=== PATIENT | male | born 1995 | race African-American/Black ===

== ENCOUNTER 2018-07-04 00:57 | Emergency (ER) | payer OTHER ==
[2018-07-04] MEDS ORDERED: IBUPROFEN 800 MG TABLET PO ONE (01:40)
--- NOTE | 2018-07-04 01:43 | ER Document Report ---
ED Medical Screen (RME) - General Chief Complaint: Wrist Injury Stated Complaint: WRIST INJURY Time Seen by Provider: 07/04/18 01:40 Notes: 22-year-old -Brazilian male coming in today with left wrist injury. Yesterday he he tripped and landed with all of his weight onto his left wrist. Gradually started developing more soft tissue swelling and bruising in the wrist. Decreased range of motion. I have treated and performed a rapid initial assessment of this patient. A comprehensive ED assessment and evaluation of the patient, analysis of test results and completion of medical decision making process will be conducted by additional ED providers. PHYSICAL EXAMINATION: GENERAL: Well-appearing LUNGS: Unlabored HEART: Extremities well perfused Extremities: Moderate soft tissue swelling left wrist and ecchymosis. Decreased range of motion at the wrist. Elbow and shoulder are unaffected NEUROLOGICAL: Normal speech, normal gait. PSYCH: Normal mood, normal affect. TRAVEL OUTSIDE OF THE [place] IN LAST 30 DAYS: No - Related Data Allergies/Adverse Reactions: No Known Allergies Allergy (Verified 09/06/15 11:50) Past Medical History - Social History Frequency of alcohol use: Social Drug Abuse: Marijuana Neurological Medical History: Reports: Hx Seizures Renal/ Medical History: Denies: Hx Peritoneal Dialysis Past Surgical History: Reports: Hx Orthopedic Surgery - jaw fx - Immunizations Immunizations up to date: Yes Hx Diphtheria, Pertussis, Tetanus Vaccination: Yes - unknown last Physical Exam - Vital signs Vitals: Temp Pulse Resp BP Pulse Ox 97.7 F 95 18 123/73 98 07/04/18 00:58 07/04/18 00:58 07/04/18 00:58 07/04/18 00:58 07/04/18 00:58 Course - Vital Signs Vital signs: Temp Pulse Resp BP Pulse Ox 97.7 F 95 18 123/73 98 07/04/18 00:58 07/04/18 00:58 07/04/18 00:58 07/04/18 00:58 07/04/18 00:58
--- NOTE | 2018-07-04 03:37 | ER Document Report ---
HPI - HPI Patient complains to provider of: L wrist injury Time Seen by Provider: 07/04/18 01:40 Pain Level: 5 Context: 22-year-old -[place] male coming in today with left wrist injury. Yesterday he he tripped and landed with all of his weight onto his left wrist. Gradually started developing more soft tissue swelling and bruising in the wrist. Decreased range of motion. Patient is concerned that he is losing circulation although he does have brisk cap refill and a strong 2+ radial pulse. He complains of pain over the medial aspect of the hyperthenar eminence and over the distal ulna. He does have limited range of motion and pain with movement. - MUSCULOSKELETAL Musculoskeletal: REPORTS: Extremity pain - Left wrist Past Medical History - Social History Smoking Status: Current Every Day Smoker Frequency of alcohol use: Social Drug Abuse: Marijuana Family History: Reviewed & Not Pertinent Patient has suicidal ideation: No Patient has homicidal ideation: No Neurological Medical History: Reports: Hx Seizures Renal/ Medical History: Denies: Hx Peritoneal Dialysis Past Surgical History: Reports: Hx Orthopedic Surgery - jaw fx - Immunizations Immunizations up to date: Yes Hx Diphtheria, Pertussis, Tetanus Vaccination: Yes - unknown last Vertical Provider Document - CONSTITUTIONAL Notes: PHYSICAL EXAMINATION: Reviewed vital signs and charting by RN GENERAL: Well-appearing, well-nourished and in no acute distress. HEAD: Atraumatic, normocephalic. No scalp deformity EXTREMITIES: Limited range of motion with flexion and extension of the left wrist. Mild edema and ecchymosis over the distal ulna. Patient able to give thumbs up okay sign and move all of his fingers. Normal distal neurovascular exam. NEUROLOGICAL: No focal neurological deficits. Moves all extremities spon taneously and on command. PSYCH: Normal mood, normal affect. No suicidal thoughts/ideations. No homocidal thoughts/ideations. No hallucinations. SKIN: Warm, dry, normal turgor, no rashes or lesions noted. - INFECTION CONTROL TRAVEL OUTSIDE OF THE [place] IN LAST 30 DAYS: No Course - Re-evaluation Re-evalutation: 07/04/18 03:37 Overall well-appearing presents over 24 hours after the injury. X-ray is pending plan to immobilized with a volar splint. 07/04/18 04:25 X-ray was read as negative for any fracture or dislocation. Will place patient in a cock-up splint. Normal distal neurovascular exam. - Vital Signs Vital signs: Temp Pulse Resp BP Pulse Ox 97.7 F 95 18 123/73 98 07/04/18 00:58 07/04/18 00:58 07/04/18 00:58 07/04/18 00:58 07/04/18 00:58 Discharge - Discharge Clinical Impression: Left wrist injury Qualifiers: Encounter type: initial encounter Qualified Code(s): S69.92XA - Unspecified in jury of left wrist, hand and finger(s), initial encounter Condition: Good Disposition: HOME, SELF-CARE Additional Instructions: You were seen in the emergency department this evening for a wrist injury. X- ray did not show any evidence of fracture or dislocation of any of your bones. He has good circulation to your hand. This is all very reassuring and I have placed you in something called a cock-up splint that you can wear for the next week to 10 days. He can remove it as needed for showering. Your injury is most likely due to soft tissue and you could have possibly sprained a ligament or strained some muscles. You can take Motrin 600 mg every 6 hours and/or Tylenol 1000 mg every 6 hours for pain and inflammation. Please follow-up with your primary doctor as needed in the next couple of weeks. If you develop numbness or tingling in your fingertips or hand it may be that the splint is too tight you can loosen it. If you still have the symptoms after loosening it please come in for reevaluation. If your fingers start to turn blue or purple, it goes numb, or you are unable to use it please return for reevaluation.
[2018-07-04 03:55] VITALS: BP 124/75
--- NOTE | 2018-07-04 04:14 | RADIOLOGY REPORT (SQ) ---
EXAM DESCRIPTION: XR WRIST 3 OR MORE VIEWS COMPLETED DATE/TME: 07/04/2018 01:40 CLINICAL HISTORY: 22 years, Male, injury, swelling COMPARISON: None. NUMBER OF VIEWS: 4 TECHNIQUE: 4 view left wrist LIMITATIONS: None. FINDINGS: Negative for acute fracture or dislocation. Soft tissues are unremarkable IMPRESSION: Negative exam copyright 2011 [employer]- All Rights Reserved
== END 2018-07-04 05:00 | disposition home or self-care (01) ==
LOC: ER 00:57
DX: S60.212A Contusion of left wrist, initial encounter (principal); W19.XXXA Unspecified fall, initial encounter; Y93.67 Activity, basketball; F17.200 Nicotine dependence, unspecified, uncomplicated; F12.10 Cannabis abuse, uncomplicated
CPT/HCPCS: 99283; 73110; L3908

== ENCOUNTER 2018-12-07 15:29 | Emergency (ER) | payer OTHER ==
--- NOTE | 2018-12-07 15:36 | ER Document Report ---
ED Medical Screen (RME) - General Chief Complaint: Probable Seizure Stated Complaint: SEIZURE Time Seen by Provider: 12/07/18 15:34 Mode of Arrival: Wheelchair Information source: Patient, Parent Notes: 23-year-old male presented to ED post seizure. Mother states that he has a history of seizures he was seeing Dr. Yap and Dr. Canela left they have not been able to get into another doctor to get back on his seizure medicines he has not had a seizure medicine for about a year. He states she is always known when he does not have a seizure. She states he came up to her tensed up became very anxious she got his bed where he laid down then he started shaking she was not able to talk to him for about 5 minutes. She states he was not incontinent of urine or stool. 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 He is alert and oriented at this time he is able to answer questions appropriately. I have greeted and performed a rapid initial assessment of this patient. A comprehensive ED assessment and evaluation of the patient, analysis of test results and completion of medical decision making process will be conducted by an additional ED providers. TRAVEL OUTSIDE OF THE [place] IN LAST 30 DAYS: No - Related Data Allergies/Adverse Reactions: No Known Allergies Allergy (Verified 09/06/15 11:50) Past Medical History Neurological Medical History: Reports: Hx Seizures Renal/ Medical History: Denies: Hx Peritoneal Dialysis Past Surgical History: Reports: Hx Orthopedic Surgery - jaw fx - Immunizations Immunizations up to date: Yes Hx Diphtheria, Pertussis, Tetanus Vaccination: Yes - unknown last
[2018-12-07] MEDS ORDERED: LEVETIRACETAM 500 MG/NACL-ISO 500 MG/100 ML RTUPB IV ONE (15:47)
--- NOTE | 2018-12-07 15:56 | ER Document Report ---
ED General - General Chief Complaint: Probable Seizure Stated Complaint: SEIZURE Time Seen by Provider: 12/07/18 15:34 Mode of Arrival: Wheelchair TRAVEL OUTSIDE OF THE [place] IN LAST 30 DAYS: No - HPI Notes: Patient is a 23-year-old male with history of seizure disorder who presents with mother after having a seizure prior to arrival about an hour ago. Patient states that he had not been sleeping for the past 24 hours, drink 42 ounces of alcohol this morning, and has been stressed out. Patient states that he was walking towards living room when he had a seizure. Patient states that he did not injure any part of his body. This was witnessed by the mother. Mother states that he throws up and had little shaking and did not want to respond for about 2 minutes. Patient states that this was not as severe as his normal seizures. Last seizure was 3 months ago. He is not currently on any medicines. He has not been following with a neurologist for over a year. He did not bite his tongue, cheek, or have any incontinence. Patient states that he does have some light sensitivity and intermittent nausea, but is otherwise feeling well. No nausea currently. Denies any headache, fever, head injury, neck pain, changes in vision/speech/mentation/hearing, URI, sore throat, chest pain, palpitations, syncope, cough, shortness of breath, wheeze, dyspnea, abdominal pain, nausea/vomiting/diarrhea, urinary retention, dysuria, hematuria, loss of control of bowel or bladder, numbness/tingling, saddle anesthesia, muscle paralysis/weakness, or rash. - Related Data Allergies/Adverse Reactions: No Known Allergies Allergy (Verified 12/07/18 15:45) Home Medications: mens multivitamin Past Medical History - General Information source: Patient, Parent - Social History Smoking Status: Never Smoker Chew tobacco use (# tins/day): No Frequency of alcohol use: None Drug Abuse: None Family History: Reviewed & Not Pertinent Patient has suicidal ideation: No Patient has homicidal ideation: No Neurological Medical History: Reports: Hx Seizures Renal/ Medical History: Denies: Hx Peritoneal Dialysis Past Surgical History: Reports: Hx Orthopedic Surgery - jaw fx - Immunizations Immunizations up to date: Yes Hx Diphtheria, Pertussis, Tetanus Vaccination: Yes - unknown last Review of Systems - Review of Systems -: Yes All other systems reviewed and negative Physical Exam - Vital signs Vitals: Temp Pulse Resp BP Pulse Ox 97.7 F 97 20 141/84 H 94 12/07/18 15:33 12/07/18 15:33 12/07/18 15:33 12/07/18 15:33 12/07/18 15:33 - Notes Notes: PHYSICAL EXAMINATION: GENERAL: Well-appearing, well-nourished and in no acute distress. A&Ox4. Answers questions appropriately. HEAD: Atraumatic, normocephalic. Non-tender. EYES: Pupils equal round and reactive to light, extraocular movements intact, sclera anicteric, conjunctiva are normal. No nystagmus. ENT: EAC clear b/l. TM's intact b/l without erythema, fluid, or perforation. Nares patent and without discharge. oropharynx clear without exudates. No tonsilar hypertrophy or erythema. Moist mucous membranes. No sinus tenderness. NECK: Normal range of motion, supple without lymphadenopathy. No rigidity/meningismus. No midline tenderness. LUNGS: Breath sounds clear to auscultation bilaterally and equal. No wheezes rales or rhonchi. HEART: Regular rate and rhythm without murmurs, rubs, gallops. ABDOMEN: Soft, nontender, nondistended abdomen. No guarding, no rebound. Normal bowel sounds present. No CVA tenderness bilaterally. Musculoskeletal: Ext b/l: FROM to passive/active. Strength 5+/5. No deficits noted. No bony tenderness of extremities. Extremities: No cyanosis, clubbing, or edema b/l. Peripheral pulses 2+. Ca pillary refill less than 2 seconds. NEUROLOGICAL: NIH 0. GCS 15. Cranial nerves grossly intact. Normal speech, normal gait. Normal sensory, motor exams. Reflexes 2+ b/l. LEDY's negative. Pronator drift negative. Heel/mitchell, finger/nose wnl. PSYCH: Normal mood, normal affect. SKIN: Warm, Dry, normal turgor, no rashes or lesions noted. Course - Re-evaluation Re-evalutation: 12/07/18 18:36 Patient is an afebrile, well-hydrated, 23-year-old male who presents with seizure and known seizure disorder, otherwise back to baseline. Vitals are acceptable without significant tachycardia, tachypnea, or hypoxia. PE is otherwise unremarkable for any focal neurological deficit. Patient is nontoxic- appearing and has been tolerating p.o. without difficulty. Patient was given fluids as well as Keppra. Labs unremarkable. No further work-up warranted at this time. Mother feels competent to take him home and to monitor at home. Low suspicion for any acute glaucoma, temporal arteritis, meningitis, intracranial hemorrhage, ischemic stroke, sepsis, or fracture at this time. Patient is aware that his condition can change from initial presentation and that he needs to monitor symptoms closely for any acute changes. Patient to schedule an appointment with neurology. Recheck with your PCM this week. Return to the ED with any other worsening/concerning symptoms. Patient is in agreement. - Vital Signs Vital signs: Temp Pulse Resp BP Pulse Ox 97.7 F 97 12 133/74 H 99 12/07/18 15:33 12/07/18 15:33 12/07/18 17:45 12/07/18 17:45 12/07/18 17:45 - Laboratory Result Diagrams: 12/07/18 15:55 12/07/18 15:55 Laboratory results interpreted by me: 12/07/18 12/07/18 12/07/18 15:55 15:55 17:42 RBC 4.23 L Plt Count 113 L Seg Neuts % (Manual) 35 L Lymphocytes % (Manual) 51 H AST 153 H Total Protein 8.9 H Albumin 5.1 H Urine Protein 30 H Discharge - Discharge Clinical Impression: Seizure Condition: Stable Disposition: HOME, SELF-CARE Instructions: Seizure, Known Epileptic ([facility]) Additional Instructions: Rest, Ice/cool compress Tylenol/ibuprofen as needed Light stretches daily Strength exercises as able Moist heat and massage may help F/u with your PCP in 3-5 days for a recheck Schedule consult(s) with Neurology Return to the ED with any worsening symptoms and/or development of fever, headache, changes in behavior/mentation/vision/speech, chest pain, palpitations, syncope, shortness of breath, trouble breathing, abdominal pain, n/v/d, blood in stool/urine, loss of control of bowel/bladder, urinary retention, muscle weakness/paralysis, saddle anesthesia, numbness/tingling, or other worsening symptoms that are concerning to you. Forms: Elevated Blood Pressure Referrals: MANISH JOLLY MD [NO LOCAL MD] - Follow up as needed ANGELITA PAPPAS MD [COMMUNITY BASED STAFF] - Follow up as needed
[2018-12-07] MEDS: NORMAL SALINE 1000 ML 1,000 ML IV PRN ×2 (16:11→17:13)
[2018-12-07 16:18] LABS: HEMATOCRIT 40.1 % (37.9-51.0); HEMOGLOBIN 13.5 g/dL (13.5-17.0); MEAN CORPUSCULAR HEMOGLOBIN 31.9 pg (27.0-33.4); MEAN CORPUSCULAR HGB CONC 33.7 g/dL (32.0-36.0); MEAN CORPUSCULAR VOLUME 95 fl (80-97); PLATELET COUNT 113 10^3/uL (150-450); RED BLOOD COUNT 4.23 10^6/uL (4.35-5.55); RED CELL DISTRIBUTION WIDTH 13.3 % (11.5-14.0); WHITE BLOOD COUNT 6.9 10^3/uL (4.0-10.5)
[2018-12-07 16:26] LABS: ALBUMIN 5.1 g/dL (3.5-5.0); ALKALINE PHOSPHATASE 80 U/L (38-126); ANION GAP 13 (5-19); ASPARTATE AMINO TRANSFERASE 153 U/L (17-59); BILIRUBIN,DIRECT 0.1 mg/dL (0.0-0.4); BILIRUBIN,TOTAL 0.6 mg/dL (0.2-1.3); BLOOD UREA NITROGEN 10 mg/dL (7-20); CALCIUM 9.3 mg/dL (8.4-10.2); CARBON DIOXIDE 27 mmol/L (22-30); CHLORIDE 103 mmol/L (98-107); GLUCOSE 101 mg/dL (75-110); TOTAL PROTEIN 8.9 g/dL (6.3-8.2)
[2018-12-07 16:36] LABS: ABSOLUTE LYMPHOCYTES# (MANUAL) 3.7 10^3/uL (0.5-4.7); ABSOLUTE MONOCYTES # (MANUAL) 0.6 10^3/uL (0.1-1.4); BASOPHILS % (MANUAL) 1 % (0-2); EOSINOPHILS % (MANUAL) 2 % (0-6); LYMPHOCYTES % (MANUAL) 51 % (13-45); MONOCYTES % (MANUAL) 8 % (3-13); SEGMENTED NEUTROPHILS % (MAN) 35 % (42-78); TOTAL CELLS COUNTED 100
[2018-12-07 16:37] LABS: PLATELET COMMENT DECREASED
[2018-12-07 18:04] LABS: APPEARANCE,URINE CLEAR; BILIRUBIN,URINE NEGATIVE (NEGATIVE); COLOR,URINE YELLOW; GLUCOSE, URINE NEGATIVE (NEGATIVE); KETONES,URINE NEGATIVE (NEGATIVE); PROTEIN,URINE 30 mg/dL (NEGATIVE); URINE SPECIFIC GRAVITY 1.014; UROBILINOGEN,URINE NEGATIVE mg/dL (<2.0)
[2018-12-07 18:19] LABS: URINE AMPHETAMINES SCREEN NEGATIVE; URINE BARBITURATES SCREEN NEGATIVE; URINE BENZODIAZEPINES SCREEN NEGATIVE; URINE COCAINE SCREEN NEGATIVE; URINE MARIJUANA (THC) SCREEN NEGATIVE; URINE METHADONE SCREEN NEGATIVE; URINE PHENCYCLIDINE SCREEN NEGATIVE
[2018-12-07 18:37] VITALS: BP 128/85
== END 2018-12-07 18:55 | disposition home or self-care (01) ==
LOC: ER 15:29
DX: R56.9 Unspecified convulsions (principal); R11.0 Nausea; Z79.899 Other long term (current) drug therapy
CPT/HCPCS: 99284; 96361; 96374; 36415; 85025; 80053; 81001; 80307; J7030; J1953

== ENCOUNTER 2018-12-15 17:53 | Emergency (ER) | payer OTHER ==
[2018-12-15 18:34] LABS: ABSOLUTE BASOPHILS # (AUTO) 0.1 10^3/uL (0.0-0.2); ABSOLUTE EOSINOPHILS # (AUTO) 0.1 10^3/uL (0.0-0.6); ABSOLUTE LYMPHOCYTES (AUTO) 3.4 10^3/uL (0.5-4.7); ABSOLUTE MONOCYTES (AUTO) 0.9 10^3/uL (0.1-1.4); ABSOLUTE NEUT (AUTO) 2.3 10^3/uL (1.7-8.2); BASOPHILS % (AUTO) 1.5 % (0-2); EOSINOPHILS % (AUTO) 1.4 % (0-6); HEMATOCRIT 37.7 % (37.9-51.0); HEMOGLOBIN 12.9 g/dL (13.5-17.0); LYMPHOCYTES % (AUTO) 49.9 % (13-45); MEAN CORPUSCULAR HEMOGLOBIN 32.1 pg (27.0-33.4); MEAN CORPUSCULAR HGB CONC 34.3 g/dL (32.0-36.0); MEAN CORPUSCULAR VOLUME 94 fl (80-97); MONOCYTES % (AUTO) 13.1 % (3-13); PLATELET COUNT 114 10^3/uL (150-450); RED BLOOD COUNT 4.03 10^6/uL (4.35-5.55); RED CELL DISTRIBUTION WIDTH 13.1 % (11.5-14.0); SEGMENTED NEUTROPHILS % (AUTO) 34.1 % (42-78); TOTAL CELLS COUNTED % (AUTO) 100 %; WHITE BLOOD COUNT 6.8 10^3/uL (4.0-10.5)
[2018-12-15 18:43] LABS: ALKALINE PHOSPHATASE 67 U/L (38-126); ANION GAP 13 (5-19); ASPARTATE AMINO TRANSFERASE 128 U/L (17-59); BILIRUBIN,DIRECT 0.2 mg/dL (0.0-0.4); BILIRUBIN,TOTAL 0.5 mg/dL (0.2-1.3); BLOOD UREA NITROGEN 9 mg/dL (7-20); CALCIUM 9.3 mg/dL (8.4-10.2); CARBON DIOXIDE 29 mmol/L (22-30); CHLORIDE 104 mmol/L (98-107); GLUCOSE 116 mg/dL (75-110); TOTAL PROTEIN 8.8 g/dL (6.3-8.2)
[2018-12-15] MEDS ORDERED: LEVETIRACETAM 1000 MG/NACL-ISO 1,000 MG/100 ML RTUPB IV ONE (18:44)
[2018-12-15] MEDS ORDERED: LEVETIRACETAM 500 MG/NACL-ISO 500 MG/100 ML RTUPB IV ONE (18:45)
[2018-12-15 18:57] LABS: ALCOHOL 449 mg/dL (NONE DETECTED)
--- NOTE | 2018-12-15 18:57 | ER Document Report ---
ED Seizure - General Chief Complaint: Probable Seizure Stated Complaint: POSSIBLE SEIZURE Time Seen by Provider: 12/15/18 18:23 Primary Care Provider: ROE SLADANA DO [Primary Care Provider] - Follow up as needed Notes: Patient is a 23-year-old male history of "nocturnal seizures" presents to the emergency department for a potential seizure. Patient voices he also does drink alcohol heavily. Patient's denying any seizures from withdrawal. Patient voices he has been drinking "the same amount" of alcohol he always drinks for "years now." Patient voices he has intermittent twitching episodes in his arms and his legs and he "stares off" for long periods of time. Pt voices he did take Keppra in the past but stopped it himself as he "did not think he needed it anymore." Pt was also seen her recently for sz, told to f/u with Neuro and did not. Mother in the room currently stating she will make sure the pt. has proper f/u. Pt voices he overall does feel tired and was nauseated which is typical after h is sz. Patient's denying any trauma or falls. I have spoken with him at length about [facility]. He is wishing to decline. - Related Data Allergies/Adverse Reactions: No Known Allergies Allergy (Verified 12/07/18 15:45) Past Medical History - General Information source: Patient - Social History Smoking Status: Unknown if Ever Smoked Frequency of alcohol use: Heavy Drug Abuse: None Family History: Reviewed & Not Pertinent Patient has suicidal ideation: No Patient has homicidal ideation: No Neurological Medical History: Reports: Hx Seizures Renal/ Medical History: Denies: Hx Peritoneal Dialysis Past Surgical History: Reports: Hx Orthopedic Surgery - jaw fx - Immunizations Immunizations up to date: Yes Hx Diphtheria, Pertussis, Tetanus Vaccination: Yes - unknown last Review of Systems - Review of Systems Constitutional: denies: Fever EENT: No symptoms reported Cardiovascular: No symptoms reported Respiratory: No symptoms reported Gastrointestinal: See HPI Genitourinary: No symptoms reported Male Genitourinary: No symptoms reported Musculoskeletal: No symptoms reported Skin: No symptoms reported Hematologic/Lymphatic: No symptoms reported Neurological/Psychological: See HPI Physical Exam - Vital signs Vitals: Resp 11 L 12/15/18 18:01 - Notes Notes: GENERAL: Alert, interacts well. No acute distress. HEAD: Normocephalic, atraumatic. EYES: Pupils equal, round, and reactive to light. Extraocular movements intact. ENT: Oral mucosa moist, tongue midline. Nares patent, no nasal septal hematoma, TM's intact. NECK: Full range of motion. Supple. Trachea midline. LUNGS: Clear to auscultation bilaterally, no wheezes, rales, or rhonchi. No respiratory distress. HEART: Regular rate and rhythm. No murmur ABDOMEN: Soft, non-tender. Non-distended. Bowel sounds present in all 4 quadrants. EXTREMITIES: Moves all 4 extremities spontaneously. No edema, normal radial and dorsalis pedis pulses bilaterally. No cyanosis. BACK: no cervical, thoracic, lumbar midline tenderness. No saddle anesthesia, normal distal neurovascular exam. NEUROLOGICAL: Alert and oriented x3. Normal speech. cranial nerves II through XII grossly intact. PSYCH: Normal affect, normal mood. SKIN: Warm, dry, normal turgor. No rashes or lesions noted. Course - Re-evaluation Re-evalutation: Laboratory 12/15/18 12/15/18 12/15/18 18:03 18:03 18:03 WBC 6.8 RBC 4.03 L Hgb 12.9 L Hct 37.7 L MCV 94 MCH 32.1 MCHC 34.3 RDW 13.1 Plt Count 114 L Lymph % (Auto) 49.9 H [place] % (Auto) 13.1 H Eos % (Auto) 1.4 Baso % (Auto) 1.5 Absolute Neuts (auto) 2.3 Absolute Lymphs (auto) 3.4 Absolute Monos (auto) 0.9 Absolute Eos (auto) 0.1 Absolute Basos (auto) 0.1 Seg Neutrophils % 34.1 L Sodium 145.8 H Potassium 4.0 Chloride 104 Carbon Dioxide 29 Anion Gap 13 BUN 9 Creatinine 0.85 Est GFR ( Amer) > 60 Est GFR (MDRD) Non-Af > 60 Glucose 116 H Calcium 9.3 Magnesium 2.0 Total Bilirubin 0.5 Direct Bilirubin 0.2 Neonat Total Bilirubin Not Reportable Neonat Direct Bilirubin Not Reportable Neonat Indirect Bili Not Reportable AST 128 H ALT 72 Alkaline Phosphatase 67 Creatine Kinase 427 H Total Protein 8.8 H Albumin 5.0 Urine Color Urine Appearance Urine pH Ur Specific [place] Urine Protein Urine Glucose (UA) Urine Ketones Urine Blood Urine Nitrite Urine Bilirubin Urine Urobilinogen Ur Leukocyte Esterase Urine WBC (Auto) Urine RBC (Auto) Urine Ascorbic Acid Urine Opiates Screen Urine Methadone Screen Ur Barbiturates Screen Ur Phencyclidine Scrn Ur Amphetamines Screen U Benzodiazepines Scrn Urine Cocaine Screen U Marijuana (THC) Screen Serum Alcohol 449 H* 12/15/18 12/15/18 19:32 19:32 WBC RBC Hgb Hct MCV MCH MCHC RDW Plt Count Lymph % (Auto) [place] % (Auto) Eos % (Auto) Baso % (Auto) Absolute Neuts (auto) Absolute Lymphs (auto) Absolute Monos (auto) Absolute Eos (auto) Absolute Basos (auto) Seg Neutrophils % Sodium Potassium Chloride Carbon Dioxide Anion Gap BUN Creatinine Est GFR ( Amer) Est GFR (MDRD) Non-Af Glucose Calcium Magnesium Total Bilirubin Direct Bilirubin Neonat Total Bilirubin Neonat Direct Bilirubin Neonat Indirect Bili AST ALT Alkaline Phosphatase Creatine Kinase Total Protein Albumin Urine Color STRAW Urine Appearance CLEAR Urine pH 6.0 Ur Specific [place] 1.006 Urine Protein 30 H Urine Glucose (UA) NEGATIVE Urine Ketones NEGATIVE Urine Blood SMALL H Urine Nitrite NEGATIVE Urine Bilirubin NEGATIVE Urine Urobilinogen NEGATIVE Ur Leukocyte Esterase NEGATIVE Urine WBC (Auto) 0 Urine RBC (Auto) 0 Urine Ascorbic Acid NEGATIVE Urine Opiates Screen NEGATIVE Urine Methadone Screen NEGATIVE Ur Barbiturates Screen NEGATIVE Ur Phencyclidine Scrn NEGATIVE Ur Amphetamines Screen NEGATIVE U Benzodiazepines Scrn NEGATIVE Urine Cocaine Screen NEGATIVE U Marijuana (THC) Screen NEGATIVE Serum Alcohol Pts alcohol was noted to be significantly elevated at todays visit. I have again talked to him about [facility]. He remains clinically sober CAOx4 GCS 15 with family in the room. Discussed he should not be driving with sz or alcohol intoxication. Discussed also he should not be swimming or bathing alone for drowning risk. Pts mother is back at bedside and will be taking over care of the Pt. I have spo roma with her about the significantly elevated etoh and risks of aspiration PNA or hypoxia or respiratory depression. Mother voices understanding and pt. will be d/c to her care. Again pt is refusing [facility], will provide paperwork/information for later treatment as wanted. - Vital Signs Vital signs: Temp Pulse Resp BP Pulse Ox 98 F 27 H 127/83 H 98 12/15/18 18:58 12/15/18 20:01 12/15/18 20:01 12/15/18 20:01 - Laboratory Result Diagrams: 12/15/18 18:03 12/15/18 18:03 Laboratory results interpreted by me: 12/15/18 12/15/18 12/15/18 18:03 18:03 18:03 RBC 4.03 L Hgb 12.9 L Hct 37.7 L Plt Count 114 L Lymph % (Auto) 49.9 H [place] % (Auto) 13.1 H Seg Neutrophils % 34.1 L Sodium 145.8 H Glucose 116 H AST 128 H Creatine Kinase 427 H Total Protein 8.8 H Urine Protein Urine Blood Serum Alcohol 449 H* 12/15/18 19:32 RBC Hgb Hct Plt Count Lymph % (Auto) [place] % (Auto) Seg Neutrophils % Sodium Glucose AST Creatine Kinase Total Protein Urine Protein 30 H Urine Blood SMALL H Serum Alcohol Discharge - Discharge Clinical Impression: Seizure, Alcohol abuse Condition: Stable Disposition: HOME, SELF-CARE Instructions: Seizure, Known Epileptic ([facility]), Chronic Alcoholism ([facility]), Acute Alcohol Intoxication ([facility]) Additional Instructions: As we discussed you have been seen and treated in the emergency department for a seizure and alcohol intoxication. Is very important that you follow-up with neurology. I have also provided phone numbers for follow-up with outpatient alcohol detox facilities. Please also take medications as prescribed. Please return to the emergency department for any concerns. Prescriptions: Levetiracetam [Keppra 500 mg Tablet] 500 mg PO Q12 #14 tablet Referrals: ROE SALDANA DO [Primary Care Provider] - Follow up as needed MANISH JOLLY MD [NO LOCAL MD] - Follow up as needed
[2018-12-15] MEDS ORDERED: RINGERS SOLUTION,LACTATED 1,000 ML IV ONE (19:01)
[2018-12-15 19:53] LABS: APPEARANCE,URINE CLEAR; BILIRUBIN,URINE NEGATIVE (NEGATIVE); COLOR,URINE STRAW; GLUCOSE, URINE NEGATIVE (NEGATIVE); KETONES,URINE NEGATIVE (NEGATIVE); LEUKOCYTE ESTERASE,URINE NEGATIVE (NEGATIVE); NITRITE,URINE NEGATIVE (NEGATIVE); PROTEIN,URINE 30 mg/dL (NEGATIVE); URINE SPECIFIC GRAVITY 1.006; UROBILINOGEN,URINE NEGATIVE mg/dL (<2.0)
[2018-12-15 20:19] LABS: URINE AMPHETAMINES SCREEN NEGATIVE; URINE BARBITURATES SCREEN NEGATIVE; URINE BENZODIAZEPINES SCREEN NEGATIVE; URINE COCAINE SCREEN NEGATIVE; URINE MARIJUANA (THC) SCREEN NEGATIVE; URINE METHADONE SCREEN NEGATIVE; URINE PHENCYCLIDINE SCREEN NEGATIVE
[2018-12-15 21:48] VITALS: BP 108/54
--- NOTE | 2018-12-15 22:55 | EKG REPORT ---
SEVERITY:- NORMAL ECG - SINUS RHYTHM : Confirmed by: Elizabeth Sim MD 15-Dec-2018 22:54:08
== END 2018-12-15 21:41 | disposition home or self-care (01) ==
LOC: ER 17:53
DX: G40.909 Epilepsy, unspecified, not intractable, without status epilepticus (principal); F10.10 Alcohol abuse, uncomplicated
CPT/HCPCS: 93005; 99284; 96365; 36415; 80307 ×2; 82550; 83735; 85025; 80053; 81001; 93010; J7120; J1953

== ENCOUNTER 2019-03-30 15:28 | Emergency (ER) | payer OTHER ==
[2019-03-30 15:50] VITALS: BP 133/76
--- NOTE | 2019-03-30 16:26 | ER Document Report ---
HPI - HPI Time Seen by Provider: 03/30/19 15:58 Pain Level: Denies Notes: 23-year-old male patient with history of seizures presents the emergency department requesting a work note. Patient reports he had a seizure last night and had a few tremors while he was at work so his work will not allow him to come back until he has worked out. Patient denies any symptoms today, states he is feeling fine. States he has been compliant with his Keppra and he has a primary care doctor. - CONSTITUTIONAL Constitutional: DENIES: Fever, Chills - NEURO Neurology: REPORTS: Headache Past Medical History - General Information source: Patient - Social History Smoking Status: Current Every Day Smoker Frequency of alcohol use: Heavy Family History: Reviewed & Not Pertinent Patient has suicidal ideation: No Patient has homicidal ideation: No Neurological Medical History: Reports: Hx Seizures Renal/ Medical History: Denies: Hx Peritoneal Dialysis Past Surgical History: Reports: Hx Orthopedic Surgery - jaw fx - Immunizations Immunizations up to date: Yes Hx Diphtheria, Pertussis, Tetanus Vaccination: Yes - unknown last Vertical Provider Document - CONSTITUTIONAL Notes: PHYSICAL EXAMINATION: GENERAL: Well-appearing, well-nourished and in no acute distress. HEAD: Atraumatic, normocephalic. EYES: Pupils equal round extraocular movements intact, conjunctiva are normal. ENT: Nares patent NECK: Normal range of motion LUNGS: No respiratory distress Musculoskeletal: Normal range of motion NEUROLOGICAL: Normal speech, normal gait. PSYCH: Normal mood, normal affect. SKIN: Warm, Dry, normal turgor, no rashes or lesions noted. - INFECTION CONTROL TRAVEL OUTSIDE OF THE [place] IN LAST 30 DAYS: No Course - Re-evaluation Re-evalutation: Patient appears well, nontoxic, vital signs within normal limits. Limited physical exam unremarkable. Patient will be provided with clearance for work. - Vital Signs Vital signs: Temp Pulse Resp BP Pulse Ox 98.2 F 81 16 133/76 H 97 03/30/19 15:46 03/30/19 15:46 03/30/19 15:46 03/30/19 15:46 03/30/19 15:46 Discharge - Discharge Clinical Impression: Encounter for health-related screening Condition: Stable Disposition: HOME, SELF-CARE Additional Instructions: Please continue to take your seizure medications as prescribed. Return to the emergency department with any new or worsening symptoms. Please make sure you are getting plenty of rest and eating appropriate meals daily. Forms: Return to Work Referrals: ROE SALDANA, DO [ACTIVE STAFF] - Follow up as needed
== END 2019-03-30 16:27 | disposition home or self-care (01) ==
LOC: ER 15:28
DX: R56.9 Unspecified convulsions (principal); F17.200 Nicotine dependence, unspecified, uncomplicated